=== PATIENT | male | born 1960 | race Caucasian/White ===

== ENCOUNTER 2021-05-05 08:01 | Inpatient (IN) | payer OTHER ==
[2021-05-05] MEDS ORDERED: MAG HYDROX/AL HYDROX/SIMETH 30 ML UNIT-DOSE CUP PO ONE (08:45)
[2021-05-05] MEDS ORDERED: FAMOTIDINE 20 MG/50 ML IVPB 20 MG/50 ML MG IVPB ONE ×2 (08:45→08:57)
[2021-05-05] MEDS ORDERED: MECLIZINE HCL 25 MG TABLET (FP) PO ONE (08:46)
[2021-05-05] MEDS ORDERED: ONDANSETRON 4 MG/2 ML VIAL IVPUSH ONE (08:46)
[2021-05-05] MEDS ORDERED: MAG HYDROX/AL HYDROX/SIMETH 30 ML UNIT-DOSE CUP ONE (08:56)
[2021-05-05] MEDS ORDERED: MECLIZINE HCL 25 MG TABLET (FP) ONE (08:56)
[2021-05-05] MEDS ORDERED: ONDANSETRON 4 MG/2 ML VIAL ONE (08:57)
[2021-05-05 09:33] LABS: BASO % 0.5 % (0-2.0); EOS % 0.5 % (0-4.5); HEMATOCRIT 42.2 % (35.4-49); HEMOGLOBIN 13.7 GM/dL (11.7-16.9); LYMPH % 15.8 % (8-40); MCHC 32.3 g/dl (32.0-35.9); MEAN CELL VOLUME 86.7 fl (80-96); MEAN PLT VOLUME 8.2 fl (7.5-11.1); MONO % 4.8 % (3.8-10.2); NEUT % 78.4 % (42.8-82.8); PLATELET COUNT 210 10^3/uL (134-434); RBC 4.87 M/mm3 (4.00-5.60); WHITE BLOOD COUNT 8.3 K/mm3 (4.0-10.0)
[2021-05-05 09:58] LABS: BLOOD UREA NITROGEN 18.8 mg/dL (7-18); CALCIUM 9.7 mg/dL (8.5-10.1)
[2021-05-05 10:02] LABS: CREATININE 0.8 mg/dL (0.55-1.3)
[2021-05-05 10:03] LABS: TOT PROT 7.3 g/dl (6.4-8.2)
[2021-05-05 10:04] LABS: BILIRUBIN,TOTAL 0.4 mg/dL (0.2-1)
[2021-05-05] MEDS ORDERED: MECLIZINE HCL 25 MG TABLET (FP) PO PRN (13:03)
[2021-05-05] MEDS: ENOXAPARIN NA (PORCINE) 40 MG/0.4 ML DISP.SYRIN SQ SCH (18:50)
[2021-05-05] MEDS ORDERED: ENOXAPARIN NA (PORCINE) 40 MG/0.4 ML DISP.SYRIN SQ ONE (19:39)
[2021-05-06] MEDS ORDERED: ACETAMINOPHEN 325 MG TABLET (FP) PO PRN (03:56)
[2021-05-06] MEDS ORDERED: ACETAMINOPHEN 325 MG TABLET (FP) ONE (04:53)
[2021-05-06] MEDS ORDERED: ENOXAPARIN NA (PORCINE) 40 MG/0.4 ML DISP.SYRIN SQ ONE (08:50)
[2021-05-06] MEDS ORDERED: CHOLECALCIFEROL (VIT D3) 1,000 UNIT (25 MCG) TABLET ONE (08:50)
[2021-05-06 09:15] LABS: HEMATOCRIT 42.9 % (35.4-49); HEMOGLOBIN 14.1 GM/dL (11.7-16.9); MCH 28.3 pg (25.7-33.7); MCHC 32.9 g/dl (32.0-35.9); MEAN CELL VOLUME 86.1 fl (80-96); PLATELET COUNT 216 10^3/uL (134-434); RBC 4.98 M/mm3 (4.00-5.60); RDW 13.7 % (11.9-15.9); WHITE BLOOD COUNT 5.8 K/mm3 (4.0-10.0)
[2021-05-06] MEDS: ENOXAPARIN NA (PORCINE) 40 MG/0.4 ML DISP.SYRIN SQ SCH (09:31)
[2021-05-06] MEDS: CHOLECALCIFEROL (VIT D3) 5000 UNITS (125 MCG) CAP PO SCH (09:31)
[2021-05-06 09:41] LABS: CALCIUM 9.4 mg/dL (8.5-10.1)
[2021-05-06 09:42] LABS: BLOOD UREA NITROGEN 15.7 mg/dL (7-18)
[2021-05-06 09:44] LABS: BILIRUBIN,DIRECT 0.1 mg/dL (0.0-0.2)
[2021-05-06 09:45] LABS: CREATININE 0.8 mg/dL (0.55-1.3)
[2021-05-06 09:46] LABS: BILIRUBIN,TOTAL 0.6 mg/dL (0.2-1); TOT PROT 7.4 g/dl (6.4-8.2)
[2021-05-07 06:40] LABS: BASO % 0.7 % (0-2.0); HEMATOCRIT 43.5 % (35.4-49); HEMOGLOBIN 14.1 GM/dL (11.7-16.9); LYMPH % 31.8 % (8-40); MCHC 32.3 g/dl (32.0-35.9); MEAN CELL VOLUME 86.8 fl (80-96); MEAN PLT VOLUME 7.9 fl (7.5-11.1); MONO % 7.7 % (3.8-10.2); NEUT % 56.8 % (42.8-82.8); PLATELET COUNT 219 10^3/uL (134-434); RBC 5.02 M/mm3 (4.00-5.60); RDW 13.1 % (11.9-15.9); WHITE BLOOD COUNT 4.9 K/mm3 (4.0-10.0)
[2021-05-07 07:15] LABS: CALCIUM 9.6 mg/dL (8.5-10.1)
[2021-05-07 07:16] LABS: BLOOD UREA NITROGEN 17.1 mg/dL (7-18); MAGNESIUM 2.7 mg/dL (1.8-2.4)
[2021-05-07 07:19] LABS: PHOSPHOROUS 4.8 mg/dL (2.5-4.9)
[2021-05-07 07:20] LABS: BILIRUBIN,TOTAL 0.6 mg/dL (0.2-1)
[2021-05-07 07:21] LABS: CREATININE 0.8 mg/dL (0.55-1.3); TOT PROT 7.2 g/dl (6.4-8.2)
[2021-05-07] MEDS ORDERED: CHOLECALCIFEROL (VIT D3) 1,000 UNIT (25 MCG) TABLET ONE (07:46)
[2021-05-07] MEDS ORDERED: ENOXAPARIN NA (PORCINE) 40 MG/0.4 ML DISP.SYRIN SQ ONE (07:46)
[2021-05-07] MEDS: SODIUM CHLORIDE 1,000 ML IV SCH ×2 (08:50→17:32)
[2021-05-07] MEDS: ENOXAPARIN NA (PORCINE) 40 MG/0.4 ML DISP.SYRIN SQ SCH (09:04)
[2021-05-07] MEDS: CHOLECALCIFEROL (VIT D3) 5000 UNITS (125 MCG) CAP PO SCH (09:05)
[2021-05-07 11:54] VITALS: BMI 24.0
[2021-05-08] MEDS: SODIUM CHLORIDE 1,000 ML IV SCH ×2 (04:38→12:14)
[2021-05-08 08:57] LABS: BASO % 0.5 % (0-2.0); EOS % 2.9 % (0-4.5); HEMOGLOBIN 13.5 GM/dL (11.7-16.9); LYMPH % 33.5 % (8-40); MCHC 33.9 g/dl (32.0-35.9); MEAN CELL VOLUME 85.5 fl (80-96); MONO % 8.1 % (3.8-10.2); PLATELET COUNT 203 10^3/uL (134-434); RBC 4.68 M/mm3 (4.00-5.60); WHITE BLOOD COUNT 5.2 K/mm3 (4.0-10.0)
[2021-05-08 09:57] LABS: ALBUMIN 3.8 g/dl (3.4-5.0)
[2021-05-08 09:58] LABS: MAGNESIUM 2.4 mg/dL (1.8-2.4)
[2021-05-08 10:01] LABS: CREATININE 0.4 mg/dL (0.55-1.3); PHOSPHOROUS 3.6 mg/dL (2.5-4.9)
[2021-05-08 10:02] LABS: BILIRUBIN,TOTAL 0.6 mg/dL (0.2-1); TOT PROT 6.9 g/dl (6.4-8.2)
[2021-05-08 10:03] LABS: CALCIUM 8.8 mg/dL (8.5-10.1)
[2021-05-08] MEDS: ENOXAPARIN NA (PORCINE) 40 MG/0.4 ML DISP.SYRIN SQ SCH (12:15)
[2021-05-08] MEDS: CHOLECALCIFEROL (VIT D3) 5000 UNITS (125 MCG) CAP PO SCH (12:16)
[2021-05-08 14:38] VITALS: BP 114/75; PULSE 77; TEMP 98.4
== END 2021-05-08 19:04 | disposition home or self-care (01) | DRG 137 ==
LOC: JER 08:01 → JERBED 10:59 → J8W 05-07 09:03
PROVIDERS: ADMIT Internal Medicine; ATTEND Internal Medicine
DX: U07.1 COVID-19 (principal); M62.82 Rhabdomyolysis; E86.9 Volume depletion, unspecified; R42 Dizziness and giddiness; R51.9 Headache, unspecified; R74.01 Elevation of levels of liver transaminase levels; R11.2 Nausea with vomiting, unspecified
CPT/HCPCS: 36415; 70450-TC; 70551-TC; 71045-TC-FY; 76700-TC; 80048; 80053; 80076; 82550; 82553; 82728; 82962; 83036; 83735; 84100; 84443; 84484; 85025; 85027; 85730; 87804; 93005; 93010; 97116-GP; 97161-GP; 99285-25; C9803; U0003; U0005